=== PATIENT | male | born 1955 | race Caucasian/White ===

== ENCOUNTER → 2020-10-05 | Outpatient (CLI) | payer MEDICARE, OTHER ==
[~2020-10-05] MED LIST: BREO ELLIPTA 11 EACH INH; COUMADIN6 MG PO; INCRUSE ELLI62.5 MCG INH; IPRAT-ALBUT 0.5-3 ML INH; K-DUR TAB 20 M20 MEQ PO; LASIX20 MG PO; LOVENOX100 MG/1 M SQ; MEDROL DOSEPAK 24 MG PO; OMNICEF 300 MG300 MG PO; PROAIR HFA8.5 GM INH; SINGULAIR10 MG PO; SYMBICORT 80-41 INHA INH; TRAMADOL HCL50 MG PO
== END ==
LOC: ECHO 11:58 → NM 13:00
DX: I51.9 Heart disease, unspecified (principal); I48.21 Permanent atrial fibrillation; I20.8 Other forms of angina pectoris; I51.89 Other ill-defined heart diseases; R06.02 Shortness of breath
CPT/HCPCS: ECHO; 78452; 93017; 93306; A9502; J2785

== ENCOUNTER 2021-02-23 05:35 | Inpatient (IN) | payer MEDICARE, OTHER ==
[~2021-02-23] VITALS: Ht 177.8 cm; Wt 103.9 kg
[~2021-02-23 05:35] MED LIST changes: -COUMADIN6 MG PO; -INCRUSE ELLI62.5 MCG INH; -K-DUR TAB 20 M20 MEQ PO; -LASIX20 MG PO; -PROAIR HFA8.5 GM INH; -SINGULAIR10 MG PO; -SYMBICORT 80-41 INHA INH; -TRAMADOL HCL50 MG PO
[2021-02-23 05:53] LABS: HEMOGLOBIN 12.1 gm/dl (14.0-17.5); RED BLOOD COUNT 4.05 M/UL (4.20-5.50); WHITE BLOOD COUNT 12.9 K/UL (4.5-11.0)
[2021-02-23 06:36] LABS: BUN/CREATININE RATIO 22 (0-10)
[2021-02-23] MEDS ORDERED: TRAMADOL HCL50 MG PO (08:30)
[2021-02-23] MEDS ORDERED: ELIQUIS 5 MG TAB5 MG PO (08:31)
[2021-02-23] MEDS ORDERED: BUMETANIDE1 MG PO (08:31)
[2021-02-23] MEDS ORDERED: K-DUR TAB 20 M20 MEQ PO (08:32)
[2021-02-23] MEDS ORDERED: PROAIR HFA8.5 GM INH (08:33)
[2021-02-23] MEDS ORDERED: SYMBICORT 160-1 INHA INH (08:34)
[2021-02-23] MEDS ORDERED: TUDORZA PRESS400 MCG INH (08:34)
[2021-02-23] MEDS ORDERED: INSPRA 25 MG TA25 MG PO (08:59)
[2021-02-23] MEDS ORDERED: PLAVIX 75 MG TA75 MG PO (08:59)
[2021-02-23] MEDS ORDERED: NITROSTAT0.4 MG SL (09:00)
[2021-02-23] MEDS ORDERED: ZAROXOLYN/DIULO5 MG PO (09:00)
[2021-02-23] MEDS ORDERED: CRESTOR20 MG PO (09:01)
[2021-02-23] MEDS ORDERED: MOBIC15 MG PO (09:01)
[2021-02-23] MEDS ORDERED: TOPROL XL50 MG PO (09:02)
[2021-02-23] MEDS ORDERED: DOCUSATE SODIU100 MG PO (09:43)
[2021-02-23] MEDS ORDERED: SINGULAIR10 MG PO (16:40)
[2021-02-24 06:50] LABS: HEMOGLOBIN 11.9 gm/dl (14.0-17.5); RED BLOOD COUNT 4.02 M/UL (4.20-5.50)
[2021-02-24 06:56] LABS: WHITE BLOOD COUNT 24.7 K/UL (4.5-11.0)
[2021-02-24 07:37] LABS: BUN/CREATININE RATIO 17 (0-10)
[2021-02-25 04:15] LABS: WHITE BLOOD COUNT 19.7 K/UL (4.5-11.0)
[2021-02-25 04:17] LABS: HEMOGLOBIN 9.8 gm/dl (14.0-17.5); RED BLOOD COUNT 3.3 M/UL (4.20-5.50)
[2021-02-25 04:47] LABS: BUN/CREATININE RATIO 17 (0-10)
[2021-02-25] MEDS ORDERED: HYDROCODON-ACE1 EAC6 PO (08:56)
[2021-02-25] MEDS ORDERED: INVANZ 1 GM VIAL1 GM IV (09:55)
[2021-02-25 13:32] LABS: HEMOGLOBIN 9.9 gm/dl (14.0-17.5); RED BLOOD COUNT 3.38 M/UL (4.20-5.50); WHITE BLOOD COUNT 21.7 K/UL (4.5-11.0)
[2021-02-26 04:58] LABS: HEMOGLOBIN 8.6 gm/dl (14.0-17.5); WHITE BLOOD COUNT 18.9 K/UL (4.5-11.0)
[2021-02-26 05:01] LABS: RED BLOOD COUNT 3.03 M/UL (4.20-5.50)
[2021-02-26 16:04] LABS: HEMOGLOBIN 9.7 gm/dl (14.0-17.5); WHITE BLOOD COUNT 17.8 K/UL (4.5-11.0)
[2021-02-26 16:06] LABS: RED BLOOD COUNT 3.42 M/UL (4.20-5.50)
--- NOTE | 2021-02-27 01:51 | NUR ---
02/26/21- SPOKE WITH X-RAY, PATIENT HAD ABDOMINAL X-RAY A COUPLE OF HOURS AGO, SPOKE WITH X-RAY TECH TO SEE IF WE CAN TRY AND OBTAIN RESULTS OF THIS SOON PATIENT IS HAVING CONTINUED ABD PAIN WITH NAUSEA & VOMITING OF DARK BILE- X-RAY TECH SAYS YES SHE WILL SEND IT TO BE READ- AWAITING RESULTS
[2021-02-27 06:34] LABS: HEMOGLOBIN 9.3 gm/dl (14.0-17.5); RED BLOOD COUNT 3.27 M/UL (4.20-5.50)
[2021-02-27 06:51] LABS: BUN/CREATININE RATIO 19 (0-10)
[2021-02-28 08:17] LABS: HEMOGLOBIN 8.4 gm/dl (14.0-17.5); RED BLOOD COUNT 2.99 M/UL (4.20-5.50); WHITE BLOOD COUNT 14.7 K/UL (4.5-11.0)
[2021-02-28 08:43] LABS: BUN/CREATININE RATIO 28 (0-10)
[2021-03-01 03:47] LABS: HEMOGLOBIN 8.4 gm/dl (14.0-17.5); RED BLOOD COUNT 2.86 M/UL (4.20-5.50); WHITE BLOOD COUNT 12.3 K/UL (4.5-11.0)
[2021-03-01 04:29] LABS: BUN/CREATININE RATIO 28 (0-10)
--- NOTE | 2021-03-01 10:30 | NUR ---
SOAP SUDS ENEMA ADMINISTERED PER ORDER, TOLERATED WELL. PATIENT NOTED TO HAVE A SKIN TEAR TO RIGHT ELBOW. RN APPLIED AN ALLEVYN TO SKIN TEAR. MD MADE AWARE. NO FURTHER ORDERS NOTED.
[2021-03-02 05:17] LABS: HEMOGLOBIN 9.4 gm/dl (14.0-17.5)
[2021-03-02 05:18] LABS: RED BLOOD COUNT 3.16 M/UL (4.20-5.50); WHITE BLOOD COUNT 18.6 K/UL (4.5-11.0)
[2021-03-02 05:40] LABS: BUN/CREATININE RATIO 24 (0-10)
[2021-03-03 05:16] LABS: HEMOGLOBIN 9.1 gm/dl (14.0-17.5); RED BLOOD COUNT 3.07 M/UL (4.20-5.50); WHITE BLOOD COUNT 16.1 K/UL (4.5-11.0)
[2021-03-03 05:49] LABS: BUN/CREATININE RATIO 22 (0-10)
[2021-03-04 03:44] LABS: HEMOGLOBIN 8.7 gm/dl (14.0-17.5); RED BLOOD COUNT 2.99 M/UL (4.20-5.50); WHITE BLOOD COUNT 15.6 K/UL (4.5-11.0)
[2021-03-04 04:38] LABS: BUN/CREATININE RATIO 18 (0-10)
--- NOTE | 2021-03-04 14:50 | NUR ---
03/04/21 1440 DRESSINGS CHANGED ON SKIN TEARS DORIS ARMS ALLEVYN APPLIED
[2021-03-05 06:03] LABS: HEMOGLOBIN 9.3 gm/dl (14.0-17.5); RED BLOOD COUNT 3.19 M/UL (4.20-5.50)
[2021-03-05 06:14] LABS: BUN/CREATININE RATIO 16 (0-10)
[2021-03-06 04:37] LABS: HEMOGLOBIN 9.1 gm/dl (14.0-17.5); RED BLOOD COUNT 3.1 M/UL (4.20-5.50); WHITE BLOOD COUNT 12.9 K/UL (4.5-11.0)
[2021-03-06 05:19] LABS: BUN/CREATININE RATIO 16 (0-10)
[2021-03-06] MEDS ORDERED: VANCOMYCIN HCL125 MG PO (15:53)
[2021-03-06] MEDS ORDERED: PROTONIX 40 MG40 M1 PO (15:53)
[2021-03-06] MEDS ORDERED: AUGMENTIN 875-1 EACH PO (15:55)
[2021-03-06] MEDS ORDERED: PHOS-NAK PACKET1 EA PO (15:59)
[2021-03-08 11:14] LABS: CREATININE, URINE 52.1 mg/dL (Not Estab.)
== END 2021-03-06 18:55 | disposition home or self-care (01) | DRG 418 ==
LOC: ER1 05:35 → CDU 08:25 → MED SURG 4 09:01
PROVIDERS: Internal Medicine; Internal Medicine Nephrology; Physician Assistant; Physician Assistant Medical; Surgery; ADMIT Internal Medicine
PROC: 0FT44ZZ Resection of Gallbladder, Percutaneous Endoscopic Approach (ICD-10-PCS; principal; 2021-02-24 14:12)
DX: K81.0 Acute cholecystitis (principal); I48.20 Chronic atrial fibrillation, unspecified; N17.9 Acute kidney failure, unspecified; A04.72 Enterocolitis due to Clostridium difficile, not specified as recurrent; J96.11 Chronic respiratory failure with hypoxia; K56.7 Ileus, unspecified; E87.4 Mixed disorder of acid-base balance; K82.A1 Gangrene of gallbladder in cholecystitis; Z20.822 Contact with and (suspected) exposure to COVID-19; E87.6 Hypokalemia; J44.9 Chronic obstructive pulmonary disease, unspecified; I25.10 Atherosclerotic heart disease of native coronary artery without angina pectoris; I50.9 Heart failure, unspecified; I87.8 Other specified disorders of veins; E83.39 Other disorders of phosphorus metabolism; F17.210 Nicotine dependence, cigarettes, uncomplicated; E66.01 Morbid (severe) obesity due to excess calories; K21.9 Gastro-esophageal reflux disease without esophagitis; L97.519 Non-pressure chronic ulcer of other part of right foot with unspecified severity; Z79.01 Long term (current) use of anticoagulants; Z95.5 Presence of coronary angioplasty implant and graft; Z89.512 Acquired absence of left leg below knee; Z88.1 Allergy status to other antibiotic agents; Z88.0 Allergy status to penicillin; Z80.42 Family history of malignant neoplasm of prostate; Z80.9 Family history of malignant neoplasm, unspecified; Z82.0 Family history of epilepsy and other diseases of the nervous system; Z82.49 Family history of ischemic heart disease and other diseases of the circulatory system; Z90.49 Acquired absence of other specified parts of digestive tract; Z68.32 Body mass index [BMI] 32.0-32.9, adult
CPT/HCPCS: 36415; 71045; 74018; 74019; 76705; 80053; 81001; 82043; 82436; 82550; 82553; 82570; 82803; 83605; 83735; 83874; 83880; 84100; 84132; 84133; 84156; 84300; 84484; 85025; 85027; 85610; 87040; 87324; 87449; 93005; 94640; 94660; 94664; 94760; 96374; 96375; 96376; 97110-GP-CQ; 97116-GP-CQ; 97162; 97530; 97530-GP-CQ; 99285; A6212; J0690; J1120; J1170; J1650; J2185; J2270; J2405; J2543; J2710; J2765; J3010; J3475; J3480; J7030; J7040; J7120; Q9967; U0002

== ENCOUNTER 2021-05-23 12:24 | Emergency (ER) | payer MEDICARE, OTHER ==
[~2021-05-23 12:24] MED LIST changes: -FERGON225 MG PO
[2021-05-23 13:47] LABS: HEMOGLOBIN 8.2 gm/dl (14.0-17.5); RED BLOOD COUNT 3.33 M/UL (4.20-5.50)
[2021-05-23 14:25] LABS: BUN/CREATININE RATIO 31 (0-10)
[2021-05-23] MEDS ORDERED: FERGON225 MG PO (15:04)
== END 2021-05-23 16:00 | disposition home or self-care (01) ==
LOC: ER1 12:24
PROVIDERS: Family Medicine
DX: D50.9 Iron deficiency anemia, unspecified (principal); J44.9 Chronic obstructive pulmonary disease, unspecified; I51.9 Heart disease, unspecified; Z90.49 Acquired absence of other specified parts of digestive tract
CPT/HCPCS: 36415; 80053; 81001; 82270; 82550; 82553; 82607; 82746; 83540; 83550; 83690; 84484; 85025; 85027; 85045; 93005; 99283

== ENCOUNTER → 2021-05-23 | Outpatient (CLI) | payer MEDICARE, OTHER ==
[~2021-05-23] MED LIST changes: +AUGMENTIN 875-1 EACH PO; +BUMETANIDE1 MG PO; +CRESTOR20 MG PO; +DOCUSATE SODIU100 MG PO; +ELIQUIS 5 MG TAB5 MG PO; +FERGON225 MG PO; +HYDROCODON-ACE1 EAC6 PO; +INSPRA 25 MG TA25 MG PO; +INVANZ 1 GM VIAL1 GM IV; +K-DUR TAB 20 M20 MEQ PO; +MOBIC15 MG PO; +NITROSTAT0.4 MG SL; +PHOS-NAK PACKET1 EA PO; +PLAVIX 75 MG TA75 MG PO; +PROAIR HFA8.5 GM INH; +PROTONIX 40 MG40 M1 PO; +SINGULAIR10 MG PO; +SYMBICORT 160-1 INHA INH; +TOPROL XL50 MG PO; +TRAMADOL HCL50 MG PO; +TUDORZA PRESS400 MCG INH; +VANCOMYCIN HCL125 MG PO; +ZAROXOLYN/DIULO5 MG PO
[2021-05-23 11:38] LABS: HEMOGLOBIN 8.2 gm/dl (14.0-17.5); RED BLOOD COUNT 3.31 M/UL (4.20-5.50); WHITE BLOOD COUNT 15.7 K/UL (4.5-11.0)
== END ==
LOC: LAB 10:49
PROVIDERS: Family Medicine
DX: I13.10 Hypertensive heart and chronic kidney disease without heart failure, with stage 1 through stage 4 chronic kidney disease, or unspecified chronic kidney disease (principal); D50.8 Other iron deficiency anemias
CPT/HCPCS: 36415; 85027